=== PATIENT | female | born 1985 | race Caucasian/White ===

== ENCOUNTER → 2016-05-13 | Outpatient (CLI) | payer OTHER ==
--- NOTE | 2016-05-13 11:38 | REP ---
OBSTETRIC SONOGRAPHY: HISTORY: Supervision of , followup anatomy. FINDINGS: Scanning through the gravid uterus demonstrates a viable single intrauterine gestation in a cephalic lie. motion is observed and heart rate is recorder 153 beats per minute. A posterior grade 0 placenta is seen without evidence of previa or abruption. Amniotic fluid is subjectively normal. Closed cervical length is 4.9 cm. No extrauterine abnormalities observed. There has been appropriate interval growth. No anomaly is seen. The following anatomic structures are identified and felt to be sonographically unremarkable: cranium, choroid plexus, cavum, cerebellum and posterior fossa, face and profile, lungs, four-chamber heart with left and right ventricular outflow tract views, diaphragm, left-sided stomach, abdominal wall cord insertion, three-vessel umbilical cord, kidneys and bladder, spine, upper and lower extremities. Biometry Chart: BPD 5.8 cm = 23 weeks 5 days HC 21.3 cm = 23 weeks 2 days AC 19.6 cm = 24 weeks 2 days FL 4.2 cm = 23 weeks 5 days HL 4.1 cm = 24 weeks 5 days CD 2.7 cm = 23 weeks to 6 days HC/AC ratio normal 1.08. Cephalic index normal 0.75. Estimated weight 645 grams, 1 pound 6 ounces, 43rd percentile for 24 weeks 0 days. IMPRESSION: Viable single intrauterine gestation at 23 weeks 3 days by today's composite sonographic criteria. Expected gestational age estimate based on prior sonography is 24 weeks 0 days. MARIO by prior sonography September 02, 2016. anatomic survey is felt to be complete. Signed by Kyle Wiggins MD 05/13/2016 03:08 P
== END ==
LOC: M SMT 09:45
PROVIDERS: ATTEND Advanced Practice Midwife
DX: Z34.82 Encounter for supervision of other normal pregnancy, second trimester (principal)

== ENCOUNTER → 2016-06-01 | Outpatient (CLI) | payer OTHER ==
[2016-06-01 14:05] LABS: BASO % 0.1 % (0.0-1.0); EOS # 0.1 K/mm3 (0.0-0.50); EOS % 0.6 % (0.0-3.0); LARGE UNSTAINED CELL # 0.1 K/mm3 (0.0-0.4); LARGE UNSTAINED CELL % 1.5 % (0.0-4.0); LYMPH % 20.2 % (24.0-44.0); MEAN CORPUSCULAR HEMOGLOBIN 31.7 pg (27.0-33.0); MEAN CORPUSCULAR HGB CONC 32.9 g/dl (32.0-36.5); MEAN CORPUSCULAR VOLUME 96.5 fl (80.0-96.0); MONO # 0.5 K/mm3 (0.0-0.8); MONO % 5.2 % (0.0-5.0); NEUTROPHILS # 6.7 K/mm3 (1.8-7.7); NEUTROPHILS % 72.4 % (36.0-66.0); PLATELET COUNT, AUTOMATED 247 k/mm3 (150-450); WHITE BLOOD COUNT 9.3 K/mm3 (4.0-10.0)
== END ==
LOC: M SMT 10:18
PROVIDERS: ATTEND Advanced Practice Midwife
DX: Z34.82 Encounter for supervision of other normal pregnancy, second trimester (principal)

== ENCOUNTER → 2016-08-05 | Outpatient (REF) | payer OTHER | LOC: M LAB REF 18:46 | PROVIDERS: ATTEND Advanced Practice Midwife | DX: Z34.83 Encounter for supervision of other normal pregnancy, third trimester (principal) ==

== ENCOUNTER 2016-08-27 12:28 | Inpatient (IN) | payer OTHER ==
[~2016-08-27] VITALS: Ht 157.5 cm; Wt 75.0 kg
[2016-08-27 12:38] VITALS: BP 116/57
[2016-08-27] MEDS ORDERED: ANUSOL HC CREAM 30GM TOP PRN (12:45)
[2016-08-27] MEDS ORDERED: DIBUCAINE 1% OINTMENT 30GM TOP PRN (12:45)
[2016-08-27] MEDS ORDERED: ACETAMINOPHEN 500 MG TAB PO PRN (12:45)
[2016-08-27] MEDS ORDERED: METHYLERGONOVINE MALEATE 0.2 MG TAB PO PRN (12:45)
[2016-08-27] MEDS ORDERED: DOCUSATE SODIUM 100 MG CAP PO PRN (12:45)
[2016-08-27] MEDS ORDERED: MOM 30ML SUSPENSION UDC PO PRN (12:45)
[2016-08-27] MEDS ORDERED: MEASLES,MUMPS,RUBELLA VACCINE INJ (MMR-II) (90707) SC SCH (12:45)
[2016-08-27] MEDS ORDERED: RHOGAM 300 MCG (1500 IU) INJ (J2790) IM SCH (12:45)
[2016-08-27] MEDS ORDERED: PRENTAB9 PO (13:07)
[2016-08-27] MEDS ORDERED: OXYTOCIN INJ 10 UNITS/ML VIAL (J2590) IM ONE (13:15)
[2016-08-27 14:55] VITALS: BP 113/61
[2016-08-27 18:30] VITALS: BP 112/71
[2016-08-27] MEDS: IBUPROFEN 800 MG TAB PO PRN (20:08)
--- NOTE | 2016-08-28 01:02 | HPE ---
DATE OF ADMISSION: 08/27/2016 REASON FOR ADMISSION: Labor. HISTORY OF PRESENT ILLNESS: This patient is a 31-year-old 2, para 1, who presents at 39 weeks 1 day estimated gestational age by her last menstrual period confirmed by a first trimester ultrasound with complaints of contractions and leakage of fluid. She denied any vaginal bleeding. She reports active movement. Her course has been unremarkable. She initiated care in her first trimester and has been appropriate throughout. PAST MEDICAL HISTORY: None. PAST SURGICAL HISTORY: None. PAST OBSTETRICAL HISTORY: She is a 2, para 1. She has had one term vaginal delivery proven to 6 pounds 7 ounces. MEDICATIONS: Include vitamins. ALLERGIES: She has no known drug allergies. LABORATORIES: Her blood type is A positive. Antibody screen is negative. Rubella is immune. RPR is nonreactive. Hepatitis surface antigen is negative. HIV is negative. Hepatitis C is nonreactive. Chlamydia and gonorrhea screens are negative. She had a normal 1-hour Glucola and her group B Streptococcus (GBS) status is positive. PHYSICAL EXAMINATION: VITAL SIGNS: Stable. GENERAL APPEARANCE: Appears to be uncomfortable. CERVICAL EXAM: She is completely dilated, grossly ruptured. ASSESSMENT: This patient is a 31-year-old 2, para 1 at 39 weeks 1 day estimated gestational age in active labor. PLAN: Anticipate precipitous vaginal delivery.
--- NOTE | 2016-08-28 01:07 | DN ---
DATE OF DELIVERY: 08/27/2016 TIME OF : 1226 GENDER: Male. SCORES: 8 and 9. WEIGHT: 7 pounds 1 ounce. ESTIMATED BLOOD LOSS: 300 mL. LACERATIONS: None. COUNTS: 5 laparotomy sponges accounted for prior to and after delivery. DELIVERY NOTE: On 08/27/2016, at 1226, this patient, a 31-year-old 2, now para 2 had a spontaneous vaginal delivery of a liveborn male , scores 8 and 9, weight 7 pounds 1 ounce. Head was delivered occiput anterior (OA) over an intact perineum followed by shoulders and corpus. Infant was handed to mother with a good cry. Cord was clamped times two and was cut by the father of the baby under my direction. Cord blood was then obtained. Placenta was drained and delivered grossly intact. A premixed bag of 500 mL of normal saline with 30 units of Pitocin was bolused along with uterine massage until the uterus was firm. Upon inspection, the cervix, vagina, and perineum were grossly intact and hemostatic. Mother and baby recovered in stable condition. The couple has decided to name their son Rey.
[2016-08-28] MEDS: IBUPROFEN 800 MG TAB PO PRN (04:30)
[2016-08-28 05:48] VITALS: BP 104/58
[2016-08-28] MEDS: PRENATAL VITAMIN TAB PO SCH (07:58)
[2016-08-28 18:10] VITALS: BP 114/61
[2016-08-29 05:41] VITALS: BP 110/67
[2016-08-29] MEDS: PRENATAL VITAMIN TAB PO SCH (08:30)
[2016-08-29] MEDS ORDERED: ADACEL/BOOSTRIX VACCINE (DIPHTH/PERTUSS/ACELL/TETANUS)0.5ML SYR (90715) IM ONE (09:00)
[2016-08-29] MEDS ORDERED: COLA100C3 PO (11:49)
[2016-08-29] MEDS ORDERED: MOM30SS PO (11:50)
[2016-08-29] MEDS ORDERED: IBUP-1114 PO (11:50)
[2016-08-29] MEDS ORDERED: ACET50TA PO (11:50)
== END 2016-08-29 14:20 | disposition home or self-care (01) | DRG 775 ==
LOC: M LDI 12:28 → M OBS 15:45
PROVIDERS: ADMIT Obstetrics & Gynecology; ATTEND Obstetrics & Gynecology
PROC: 10E0XZZ Delivery of Products of Conception, External Approach (ICD-10-PCS; principal; 2016-08-27)
DX: O99.824 Streptococcus B carrier state complicating childbirth (principal); Z3A.39 39 weeks gestation of pregnancy; Z37.0 Single live birth